=== PATIENT | male | born 1980 | race Two or more races ===

== ENCOUNTER 2025-03-13 09:01 | Outpatient (CLI) | payer OTHER | END 2025-03-13 09:04 | disposition home or self-care (01) | LOC: SONOGRAMA 09:01 | PROVIDERS: ATTEND Pathology Anatomic Pathology | DX: D34 Benign neoplasm of thyroid gland (principal); E07.89 Other specified disorders of thyroid; C73 Malignant neoplasm of thyroid gland ==